=== PATIENT | female | born 1985 | race American Indian/Alaskan Native ===

== ENCOUNTER 2021-04-16 15:17 | Emergency (ER) | payer SELFPAY ==
[2021-04-16 15:43] VITALS: BP 128/86
--- NOTE | 2021-04-16 17:14 | Emergency Department Report ---
ED Female HPI - General Chief complaint: Urogenital-Female Stated complaint: STOMACH PAIN Time Seen by Provider: 04/16/21 15:57 Source: patient Mode of arrival: Ambulatory Limitations: No Limitations - History of Present Illness Initial comments: The patient was evaluated in the emergency department for symptoms described in the history of present illness. He/she was evaluated in the context of the global COVID-19 pandemic, which necessitated consideration that the patient might be at risk for infection with the virus that causes COVID-19. Insti tutional protocols and algorithms that pertain to the evaluation of patients at risk for COVID-19 are in a state of rapid change based on information released by regulatory bodies including the CDC and federal and state organizations. These policies and algorithms were followed during the patient's care in the emergency department. Please note that these policies, procedures and recommendations changed on a rapid basis. 35-year-old -[place] female presents to the emergency room complaining of urinary urgency burning when she urinates in the exam blood in her urine for the last 24 hours. Patient denies any vaginal discharge denies any concern for STD. She states that she has had no fever no nausea no vomiting. She is 8 para 4 ,4 abortions. Reports she has a tubal ligation. MD Complaint: dysuria - Related Data Previous Rx's Medication Instructions Recorded Last Taken Type Amoxicillin/Potassium Clav 1 each PO BID 7 Days #14 tablet 04/16/21 Unknown Rx [Augmentin 875-125 Tablet] Allergies Allergy/AdvReac Type Severity Reaction Status Date / Time No Known Allergies Allergy Verified 04/16/21 15:43 ED Review of Systems ROS: Stated complaint: STOMACH PAIN Other details as noted in HPI ED Past Medical Hx - Medications Home Medications: Home Medications Medication Instructions Recorded Confirmed Last Taken Type Amoxicillin/Potassium Clav 1 each PO BID 7 Days #14 tablet 04/16/21 Unknown Rx [Augmentin 875-125 Tablet] ED Physical Exam - General Limitations: No Limitations General appearance: alert, in no apparent distress - Head Head exam: Present: atraumatic, normocephalic - Eye Eye exam: Present: normal appearance - ENT ENT exam: Present: mucous membranes moist - Neck Neck exam: Present: normal inspection - Respiratory Respiratory exam: Present: normal lung sounds bilaterally. Absent: respiratory distress - Cardiovascular Cardiovascular Exam: Present: regular rate, normal rhythm. Absent: systolic murmur, diastolic murmur, rubs, gallop - GI/Abdominal GI/Abdominal exam: Present: soft, tenderness (Suprapubic), normal bowel sounds - Extremities Exam Extremities exam: Present: normal inspection - Back Exam Back exam: Present: normal inspection - Neurological Exam Neurological exam: Present: alert, oriented X3 - Psychiatric Psychiatric exam: Present: normal affect, normal mood - Skin Skin exam: Present: warm, dry, intact, normal color. Absent: rash ED Course Vital Signs 04/16/21 15:41 Temperature 98.7 F Pulse Rate 76 Respiratory 16 Rate Blood Pressure 128/86 [Right] O2 Sat by Pulse 100 Oximetry ED Medical Decision Making - Medical Decision Making 35-year-old -[place] female presents to the emergency room complaining of urinary urgency burning when she urinates in the exam blood in her urine for the last 24 hours. Patient denies any vaginal discharge denies any concern for STD. She states that she has had no fever no nausea no vomiting. She is 8 para 4 ,4 abortions. Reports she has a tubal ligation. Urine analysis urine ordered Critical care attestation.: If time is entered above; I have spent that time in minutes in the direct care of this critically ill patient, excluding procedure time. ED Disposition Clinical Impression: UTI (urinary tract infection) Disposition: HOME / SELF CARE / HOMELESS Is pt being admited?: No Does the pt Need Aspirin: No Condition: Stable Instructions: Urinary Tract Infection, Adult, [id number] Additional Instructions: Urinalysis is positive for urinary tract infection. Complete antibiotics as prescribed. Tylenol or ibuprofen as needed for pain and be sure to increase your fluid intake. Void after intercourse. Follow-up with your primary care provider. Prescriptions: Amoxicillin/Potassium Clav [Augmentin 875-125 Tablet] 1 each PO BID 7 Days #14 tablet Referrals: Your, primary care provider [Other] - 3-5 Days Forms: Work/School Release Form(ED)
[2021-04-16 17:22] LABS: Bacteria,Urine 1+ /HPF (Negative); Bilirubin,Urine NEG (Negative); Blood,Urine SM (Negative); Color,Urine Yellow (Yellow); Mucus,Urine FEW /HPF; Protein,Urine <15 mg/dL mg/dL (Negative); Urobilinogen,Urine < 2.0 mg/dL (<2.0)
[2021-04-16 17:26] LABS: HCG Qualitative,Urine Negative (Negative)
== END 2021-04-16 19:26 | disposition home or self-care (01) ==
LOC: ED 15:17
DX: N39.0 Urinary tract infection, site not specified (principal)
CPT/HCPCS: 81001; 81025; 87076; 87086; 87186; 99283